=== PATIENT | female | born 1990 | race Caucasian/White ===

== ENCOUNTER 2024-02-10 02:39 | Inpatient (IN) | payer OTHER ==
[~2024-02-10] VITALS: Ht 151.9 cm; Wt 59.0 kg
[~2024-02-10 02:39] MED LIST: AMOXICILLIN500 MG PO; CEPHALEXIN500 M1 PO; NARCAN4 MG NAS; TRAMADOL HCL50 MG PO
[2024-02-10] MEDS ORDERED: OXYTOCIN/DEXTROSE 5% 20 UNITS/100 ML BAG ONE (02:51)
[2024-02-10] MEDS ORDERED: OXYTOCIN/DEXTROSE 5% 20 UNITS/100 ML BAG IV SCH (03:00)
[2024-02-10] MEDS ORDERED: OXYTOCIN/DEXTROSE 5% 20 UNITS/100 ML BAG IV ONE (03:10)
[2024-02-10] MEDS ORDERED: LACTATED RINGER'S 1,000 ML IV SCH ×2 (03:30→07:00)
[2024-02-10] MEDS ORDERED: OXYTOCIN/0.9 % SODIUM CHLORIDE 30 UNITS/500 ML BAG IV SCH (03:30)
[2024-02-10 03:38] LABS: HEMATOCRIT 30.9 % (35.0-50.0); HEMOGLOBIN 10.2 g/dL (12.0-18.0); MCH 26.2 (27-36); MCHC 32.9 g/dl (30-36); MCV 79.6 fl (81-99); RBC 3.88 M/ul (4.3-5.7); RDW 16.3 (10.5-15.0)
[2024-02-10] MEDS ORDERED: ACETAMINOPHEN 325 MG TAB PO PRN (03:45)
[2024-02-10] MEDS ORDERED: WITCH HAZEL/GLYCERIN 1 EA PAD TOP PRN (03:45)
[2024-02-10] MEDS ORDERED: MAGNESIUM HYDROXIDE/AL HYDROX 30 ML CUP PO PRN (03:45)
[2024-02-10] MEDS ORDERED: HYDROCORTISONE ACETATE 25 MG SUPP PR PRN (03:45)
[2024-02-10] MEDS ORDERED: IBUPROFEN 600 MG TAB PO PRN (03:45)
[2024-02-10] MEDS ORDERED: BENZOCAINE 60 ML AEROSOL TOP PRN (03:45)
[2024-02-10] MEDS ORDERED: MAGNESIUM HYDROXIDE 30 ML UDC PO PRN (03:45)
[2024-02-10] MEDS ORDERED: CALCIUM CARBONATE 500 MG CHEW PO PRN (03:45)
[2024-02-10 04:07] LABS: ABO A; RH POSITIVE
[2024-02-10 04:08] LABS: ANTIBODY SCREEN NEGATIVE
[2024-02-10] MEDS ORDERED: OXYTOCIN/0.9 % SODIUM CHLORIDE 500 ML IV ONE (04:13)
[2024-02-10] MEDS ORDERED: TRANEXAMIC ACID IN NACL,ISO-OS 100 ML IV ONE (04:18)
[2024-02-10] MEDS ORDERED: TRANEXAMIC ACID IN NACL,ISO-OS 1,000 MG/100 ML PIGGYBACK IV SCH (04:25)
[2024-02-10] MEDS ORDERED: miSOPROStoL 200 MCG TAB PR ONE (04:30)
[2024-02-10] MEDS ORDERED: OXYTOCIN/0.9 % SODIUM CHLORIDE 500 ML IV SCH (04:30)
[2024-02-10 04:55] LABS: BASOPHILS 0.5 % (0-2); EOSINOPHILS 0.3 % (0-6); HEMATOCRIT 31.2 % (35.0-50.0); HEMOGLOBIN 10.1 g/dL (12.0-18.0); LYMPHOCYTES 9.5 % (24-44); MCH 25.6 (27-36); MCHC 32.2 g/dl (30-36); MCV 79.5 fl (81-99); MONOCYTES 2.9 % (0-12); NEUTROPHILS 86.8 % (39-80); PLATELET COUNT 225 K/uL (140-440); RBC 3.93 M/ul (4.3-5.7); RDW 16.4 (10.5-15.0)
[2024-02-10 05:08] LABS: ALBUMIN 2.2 g/dL (3.4-5.0); ALBUMIN/GLOBULIN RATIO 0.52 (1.1-2.4); ANION GAP 13.4 (7-21); BILIRUBIN, TOTAL 0.3 ng/dL (0.2-1.0); BUN/CREATININE RATIO 12.5 (6.0-28.6); CALCIUM 8.4 mg/dL (8.5-10.1); CREATININE, SERUM 0.64 mg/dL (0.55-1.02); POTASSIUM 3.4 mmol/L (3.5-5.1); PROTEIN, TOTAL 6.4 g/dL (6.4-8.2)
[2024-02-10] MEDS ORDERED: LABETALOL HCL 100 MG/20 ML MDV IV PRN ×3 (05:15)
[2024-02-10] MEDS ORDERED: hydrALAZINE HCL 20 MG/ML VIAL IV PRN (05:15)
[2024-02-10] MEDS ORDERED: MAGNESIUM SULFATE 500 ML IV SCH (07:00)
[2024-02-10] MEDS ORDERED: CALCIUM GLUCONATE 1,000 MG/10 ML VIAL IV PRN (07:00)
[2024-02-10] MEDS ORDERED: SENNOSIDES/DOCUSATE 1 EA TAB PO SCH (09:00)
[2024-02-10] MEDS ORDERED: buprenorphine HCL 2 MG TAB.SUBL SL SCH (09:00)
[2024-02-10 09:41] LABS: AMPHETAMINES, URINE POSITIVE (NEGATIVE); BARBITURATES, URINE NEGATIVE (NEGATIVE); BENZODIAZEPINE, URINE NEGATIVE (NEGATIVE); BUPRENORPHINE, URINE POSITIVE (NEGATIVE); CANNABINOID, URINE NEGATIVE (NEGATIVE); COCAINE, URINE NEGATIVE (NEGATIVE); ECSTASY, URINE POSITIVE (NEGATIVE); FENTANYL, URINE POSITIVE (NEGATIVE); METHADONE, URINE NEGATIVE (NEGATIVE); OPIATES, URINE NEGATIVE (NEGATIVE); OXYCODONE, URINE NEGATIVE (NEGATIVE); PHENCYCLIDINE, URINE NEGATIVE (NEGATIVE)
[2024-02-11 06:07] LABS: HEMOGLOBIN 8.1 g/dL (12.0-18.0); MCHC 32.3 g/dl (30-36); MCV 80.4 fl (81-99); RBC 3.12 M/ul (4.3-5.7); RDW 16.7 (10.5-15.0)
[2024-02-11 06:26] LABS: ALBUMIN 1.7 g/dL (3.4-5.0); ALBUMIN/GLOBULIN RATIO 0.5 (1.1-2.4); ANION GAP 7.7 (7-21); BILIRUBIN, TOTAL 0.1 ng/dL (0.2-1.0); BUN/CREATININE RATIO 7.57 (6.0-28.6); CALCIUM 6.5 mg/dL (8.5-10.1); CREATININE, SERUM 0.66 mg/dL (0.55-1.02); MAGNESIUM 6.8 mg/dL (1.8-2.4); POTASSIUM 3.7 mmol/L (3.5-5.1); PROTEIN, TOTAL 5.1 g/dL (6.4-8.2)
[2024-02-11 08:50] VITALS: BP 147/87
[2024-02-11] MEDS ORDERED: LABETALOL HCL 100 MG TAB PO SCH (09:00)
== END 2024-02-11 16:45 | disposition home or self-care (01) | DRG 806 ==
LOC: FBCO 02:39 → FBC 02:45
PROVIDERS: ADMIT Obstetrics & Gynecology; ATTEND Obstetrics & Gynecology
PROC: 10E0XZZ Delivery of Products of Conception, External Approach (ICD-10-PCS; principal; 2024-02-10)
DX: O62.3 Precipitate labor (principal); O99.324 Drug use complicating childbirth; Z37.0 Single live birth; Z59.00 Homelessness unspecified; Z3A.38 38 weeks gestation of pregnancy; F15.10 Other stimulant abuse, uncomplicated; F11.10 Opioid abuse, uncomplicated; O99.334 Smoking (tobacco) complicating childbirth; F17.210 Nicotine dependence, cigarettes, uncomplicated; O70.0 First degree perineal laceration during delivery; Z98.890 Other specified postprocedural states
CPT/HCPCS: 36415; 80053; 80307; 83735; 84550; 85025; 85027; 86850; 86900; 86901; A9270; J2590; J3475; J7121